=== PATIENT | male | born 1980 | race Two or more races ===

== ENCOUNTER 2016-07-16 19:10 | Emergency (ER) | payer OTHER ==
[~2016-07-16] VITALS: Ht 167.6 cm; Wt 63.5 kg
[2016-07-16 19:22] VITALS: BP 130/89
== END 2016-07-17 01:19 | disposition home or self-care (01) ==
LOC: ER 19:13
DX: F10.129 Alcohol abuse with intoxication, unspecified (principal)
CPT/HCPCS: 99283; A4606; Z7610

== ENCOUNTER 2016-07-18 17:57 | Emergency (ER) | payer SELFPAY ==
[~2016-07-18] VITALS: Ht 180.3 cm; Wt 74.8 kg
[2016-07-18 17:58] VITALS: BP 145/88
== END 2016-07-18 19:28 | disposition left against medical advice (07) ==
LOC: ER 17:59
DX: Z53.21 Procedure and treatment not carried out due to patient leaving prior to being seen by health care provider (principal)
CPT/HCPCS: A4606; Z7610

== ENCOUNTER 2016-07-19 11:21 | Emergency (ER) | payer SELFPAY ==
[~2016-07-19] VITALS: Ht 175.3 cm; Wt 63.5 kg
[2016-07-19 11:21] VITALS: BP 150/101
== END 2016-07-19 11:45 | disposition home or self-care (01) ==
LOC: ER 11:23
DX: K29.20 Alcoholic gastritis without bleeding (principal); G40.909 Epilepsy, unspecified, not intractable, without status epilepticus; F32.9 Major depressive disorder, single episode, unspecified
CPT/HCPCS: 99283; A4606; Z7610

== ENCOUNTER 2016-07-21 14:42 | Emergency (ER) | payer MEDICAID ==
[~2016-07-21] VITALS: Ht 170.2 cm; Wt 72.6 kg
[2016-07-21] MEDS ORDERED: MAG HYDROX/AL HYDROX/SIMETH 30 ML UDC PO ONE (15:30)
[2016-07-21] MEDS ORDERED: MAG HYDROX/AL HYDROX/SIMETH 30 ML UDC ONE (15:44)
[2016-07-21 15:50] LABS: DIFF TOTAL % 100 %; EOSINOPHILS # (AUTO) 0.2 /CMM (0.0-0.7); EOSINOPHILS % (AUTO) 8.8 % (0.0-6.0); HEMATOCRIT 30 % (39-51); HEMOGLOBIN 9.4 g/dL (13.5-17.5); LYMPHOCYTES # (AUTO) 0.7 /CMM (0.8-4.8); LYMPHOCYTES % (AUTO) 29.9 % (20.0-44.0); MEAN CORPUSCULAR HEMOGLOBIN 23 PG (26.0-33.0); MEAN CORPUSCULAR HGB CONC 32 g/dl (31.0-36.0); MEAN CORPUSCULAR VOLUME 74 fL (80-96); MONOCYTES # (AUTO) 0.2 /CMM (0.1-1.30); MONOCYTES % (AUTO) 11.1 % (2.0-12.0); NEUTROPHILS # (AUTO) 1.1 /CMM (1.8-8.9); NEUTROPHILS % (AUTO) 50.2 % (43.0-81.0); PLATELET COUNT (AUTO) 165 /CMM (150-450); RED BLOOD CELL COUNT(AUTO) 4.04 MIL/uL (4.5-6.0); WHITE BLOOD COUNT (AUTO) 2.2 K/uL (4.3-11.0)
[2016-07-21 16:02] LABS: CALCIUM, SERUM 8.4 mg/dL (8.5-10.1); CREATININE 0.6 mg/dL (0.6-1.3); POTASSIUM 3.9 mmol/L (3.5-5.1)
[2016-07-21 16:17] LABS: ALBUMIN 4.2 g/dL (3.4-5.0); BILIRUBIN,DIRECT 0.1 mg/dL (0.0-0.2); BILIRUBIN,TOTAL 0.4 mg/dL (0.2-1.0); INDIRECT BILIRUBIN 0.3 mg/dL (0.0-1.1); TOTAL PROTEIN, SERUM 7.7 g/dL (6.4-8.2)
[2016-07-21 16:22] LABS: BASOPHILS % (MANUAL) 0 % (0.0-2.0); EOSINOPHILS % (MANUAL) 4 % (0-4); LYMPHOCYTES % (MANUAL) 28 % (16-48)
[2016-07-21 16:23] LABS: PLATELET ESTIMATE ADEQUATE; RBC MORPHOLOGY COMMENT ABNORMAL RBC MORPH
[2016-07-21 16:24] LABS: ANISOCYTOSIS 1+; HYPOCHROMASIA 1+; MICROCYTOSIS 1+; OVALOCYTES 1+; POIKILOCYTOSIS 1+
[2016-07-21 19:20] VITALS: BP 126/82
== END 2016-07-21 19:21 | disposition home or self-care (01) ==
LOC: ER 14:45
DX: K29.20 Alcoholic gastritis without bleeding (principal); F10.129 Alcohol abuse with intoxication, unspecified; D64.9 Anemia, unspecified; D72.819 Decreased white blood cell count, unspecified; G40.909 Epilepsy, unspecified, not intractable, without status epilepticus; F32.9 Major depressive disorder, single episode, unspecified
CPT/HCPCS: 36415; 80048-TC; 80076-TC; 83690-TC; 85025-TC; A4606; Z7610

== ENCOUNTER 2016-07-21 22:00 | Emergency (ER) | payer MEDICAID ==
[~2016-07-21] VITALS: Ht 170.2 cm; Wt 72.6 kg
[2016-07-21 22:00] VITALS: BP 128/82
[2016-07-22] MEDS ORDERED: FAMOTIDINE (20 MG) 20 MG TABLET PO ONE (04:30)
[2016-07-22] MEDS ORDERED: MAG HYDROX/AL HYDROX/SIMETH 30 ML UDC PO ONE (04:30)
== END 2016-07-22 06:14 | disposition home or self-care (01) ==
LOC: ER 22:07
DX: K29.20 Alcoholic gastritis without bleeding (principal); F10.10 Alcohol abuse, uncomplicated; G40.909 Epilepsy, unspecified, not intractable, without status epilepticus; F32.9 Major depressive disorder, single episode, unspecified
CPT/HCPCS: 99283; A4606; Z7610

== ENCOUNTER 2016-07-22 14:35 | Emergency (ER) | payer MEDICAID ==
[~2016-07-22] VITALS: Ht 175.3 cm; Wt 63.5 kg
[2016-07-22 15:36] VITALS: BP 125/74
== END 2016-07-22 17:18 | disposition left against medical advice (07) ==
LOC: ER 14:37
DX: Z53.21 Procedure and treatment not carried out due to patient leaving prior to being seen by health care provider (principal)
CPT/HCPCS: A4606; Z7610

== ENCOUNTER 2016-07-22 23:11 | Emergency (ER) | payer MEDICAID ==
[~2016-07-22] VITALS: Ht 177.8 cm; Wt 81.6 kg
[2016-07-23 05:12] VITALS: BP 118/72
== END 2016-07-23 05:13 | disposition home or self-care (01) ==
LOC: ER 23:13
DX: F10.129 Alcohol abuse with intoxication, unspecified (principal); R10.13 Epigastric pain; F32.9 Major depressive disorder, single episode, unspecified; F17.200 Nicotine dependence, unspecified, uncomplicated
CPT/HCPCS: 99283; A4606; Z7610